=== PATIENT | female | born 1980 | race American Indian/Alaskan Native ===

== ENCOUNTER 2019-11-28 08:55 | Day surgery (SDC) | payer MEDICAID, OTHER ==
[~2019-11-28 08:55] MED LIST: SODIUM CHLORIDE 0.9% 1000 ML 1,000 ML IV SCH
--- NOTE | 2019-11-28 10:33 | Anesthesia Day of Surgery ---
Anesthesia Day of Surgery - Day of Surgery Patient Examined: Yes Patient H&P Reviewed: Yes Patient is NPO: Yes
--- NOTE | 2019-11-28 10:33 | Anesthesia Consultation ---
Anesthesia Consult and Med Hx Date of service: 11/28/19 - Airway Anesthetic Teeth Evaluation: Good ROM Head & Neck: Adequate Mental/Hyoid Distance: Adequate Mallampati Class: Class III Intubation Access Assessment: Possibly Difficult - Pulmonary Exam CTA: Yes - Cardiac Exam Cardiac Exam: RRR - Pre-Operative Health Status ASA Pre-Surgery Classification: ASA2 Proposed Anesthetic Plan: MAC - Pulmonary Hx Smoking: No Hx Respiratory Symptoms: No - Cardiovascular System Hx Hypertension: No Hx Heart Attack/AMI: No - Central Nervous System CVA: No - Endocrine Hx Renal Disease: No Hx Liver Disease: No Hx Non-Insulin Dependent Diabetes: Yes Hx Thyroid Disease: No - Other Systems Hx Obesity: Yes (BMI 38)
[2019-11-28] MEDS ORDERED: LIDOCAINE MPF (2%) 20 MG/1 ML VIAL 5 ML ONE (11:00)
[2019-11-28] MEDS ORDERED: propofoL 200 MG/20 ML VIAL IV ONE ×3 (12:22→12:59)
[2019-11-28] MEDS ORDERED: MIDAZOLAM 2 MG/2 ML INJ ONE (12:30)
[2019-11-28] MEDS ORDERED: KETAMINE/STERILE WATER 50 MG/ML SYRINGE ONE (12:31)
--- NOTE | 2019-11-28 13:23 | Operative Report ---
PROCEDURE: Esophagogastroduodenoscopy with biopsy. INDICATIONS: This is a 38-year-old slightly obese -English female with an underlying history of epigastric pain, GERD symptoms. EGD was done to assess for any significant upper GI pathology. The procedure was done after getting informed consent with MAC anesthesia. Instrument was passed through the hypopharynx into the esophagus, which showed mild to moderate distal erosive esophagitis. Biopsy was done from the distal esophagus as well as from the mid esophagus to assess for the severity of the erosive esophagitis. The stomach showed antral gastritis. Biopsy was done from the gastric antrum, gastric body and angular incisura to rule out for H. pylori and atrophic gastritis. The pylorus was patent. The duodenum in the first and second portion appeared normal. Biopsy was done from the second part to rule out for possible celiac disease. There was minimal bleeding associated with the procedure. No complications associated with the procedure. ASSESSMENT: Gastroesophageal reflux disease symptoms, epigastric pain, mild to moderate erosive esophagitis, gastritis, rule out celiac disease. PLAN: To treat the patient with PPI, p.r.n. dose of Bentyl for the abdominal pain. Advised the patient to avoid aspirin and aspirin-related products for the next few days. A colonoscopy will also be done to assess for the patient's diarrhea and to make sure that there was not any associated lower GI pathology present. The patient will be asked to avoid aspirin and aspirin-related products for the next 5 days. Otherwise, resume home medication. Follow up in the office in 1-2 weeks' time. The procedure was done in the GI lab with assistance of the GI lab team, which included ANALI Meredith as well as Khadra valdes and with assistance of anesthesia. JOB# [id number] MARIA FERNANDA/JAIV
--- NOTE | 2019-11-28 13:23 | Procedure Note ---
Date of procedure: 11/28/19 Pre-op diagnosis: GERD/Epigastric Pain/Diarrhea/Colitis Post-op diagnosis: other (Esophagitis/Gastritis/ R/o Celiac Disease/ R/O Microscopic colitis/ minor,Internal Hemorrhoid) Procedure: EGD with biopsy/ colonoscopy with Biopsy Anesthesia: PAULINA Surgeon: ROSALINDA FRAGOSO Estimated blood loss: minimal Pathology: list Specimen disposition: to lab Condition: stable Disposition: same day (Treat with PPI,prn Bentyl and Welchol (for diarrhea). Avoid aspirin and NSAID for 5 days; otherwise resume home medication. Follow up in 1 to 2 weeks ([phone]).)
--- NOTE | 2019-11-28 13:28 | Operative Report ---
PROCEDURE: Colonoscopy. INDICATIONS: She had an EGD done prior to the colonoscopy, which showed mild to moderate erosive esophagitis and gastritis and biopsy was also done to rule out for celiac disease. DESCRIPTION OF PROCEDURE: Colonoscopy was done after getting informed consent. Initial rectal exam was unremarkable. Instrument was passed through the rectum onto the cecum, which was identified with ileocecal valve and the appendiceal orifice. Visualization was fair. Cecum, ascending colon, transverse colon, descending colon, and sigmoid showed normal mucosa. Attempt was made to insert the scope into the terminal ileum, which was not possible. Random biopsies were done throughout the colon to rule out for possible microscopic colitis. There was no endoscopic evidence of colitis present and the rectum showed some minor internal hemorrhoid. ASSESSMENT: Diarrhea, rule out microscopic colitis, minor internal hemorrhoid. Minimal bleeding associated with the procedure. No complications associated with the procedure. PLAN: To treat the patient with Welchol, p.r.n. dose of Bentyl. The patient will also be placed on PPI because of the findings of esophagitis and gastritis in the EGD. The patient will be advised to avoid aspirin and aspirin-related products for the next 5 days, but otherwise resume home medication and follow up in the office in 1-2 weeks' time. The procedure was done in the GI lab with assistance of the GI lab team, which included keisha Mckee and with assistance of anesthesia. JOB# [id number] MARIA FERNANDA/JAVI
--- NOTE | 2019-11-28 14:12 | Post Anesthesia Evaluation ---
- Post Anesthesia Evaluation Patient Participated: Yes Airway Patent: Yes Stable Respiratory Function: Yes Nausea/Vomiting: No Temp > 96.8F: Yes Pain Manageable: Yes Adequeate Hydration: Yes Anesthesia Complications: No
[2019-11-28 14:31] VITALS: BP 148/69
== END 2019-11-28 14:35 | disposition home or self-care (01) ==
LOC: GIO 08:55
DX: R19.7 Diarrhea, unspecified (principal); R63.4 Abnormal weight loss; R10.13 Epigastric pain; K29.50 Unspecified chronic gastritis without bleeding; K21.0 Gastro-esophageal reflux disease with esophagitis; K63.89 Other specified diseases of intestine; K64.8 Other hemorrhoids; E11.9 Type 2 diabetes mellitus without complications; E66.9 Obesity, unspecified; K29.80 Duodenitis without bleeding; B96.81 Helicobacter pylori [H. pylori] as the cause of diseases classified elsewhere; Z80.0 Family history of malignant neoplasm of digestive organs; Z79.899 Other long term (current) drug therapy; Z79.84 Long term (current) use of oral hypoglycemic drugs; Z98.51 Tubal ligation status; Z68.38 Body mass index [BMI] 38.0-38.9, adult
CPT/HCPCS: 43239; 45380; 82962; 88305; 88342; J2250; J2704; J3490; J7030